=== PATIENT | male | born 1970 | race Caucasian/White ===

== ENCOUNTER 2017-09-24 13:03 | Day surgery (SDC) | payer BC ==
[2017-09-24] VITALS (16 sets, daily range): BP systolic 115–134; BP diastolic 63–79; PULSE 64–68; RESP 7–22; Ht 172.7 cm; Wt 85.4 kg
[~2017-09-24] VITALS: Ht 172.7 cm; Wt 85.4 kg
--- NOTE | 2017-09-24 13:29 | HPN ---
Date/Time of Note Date/Time of Note DATE: 09/24/17 TIME: 13:29 Interval H&P Admission Note Pt. seen H&P reviewed: No system changes STEVEN HORTON MD Sep 24, 2017 13:29
[2017-09-24] MEDS ORDERED: CEFAZOLIN 1 GM/50 ML (PMX) 50 ML IVPB SCH (14:00)
[2017-09-24] MEDS ORDERED: OXYMETAZOLINE 0.05% 15 ML NAS SPRAY NASAL ONE (17:23)
[2017-09-24] MEDS ORDERED: LIDOCAINE 2%/EPI 30 ML INJ ONE (17:23)
[2017-09-24] MEDS ORDERED: BACITRACIN/POLYMYXIN 28.35 GM OINT TOP ONE (17:24)
[2017-09-24] MEDS ORDERED: NEOSTIGMINE 3 MG/3 ML SYRINGE ONE (17:39)
[2017-09-24] MEDS ORDERED: GLYCOPYRROLATE 0.4 MG INJ ONE (17:39)
[2017-09-24] MEDS ORDERED: PROPOFOL 20 ML ONE (17:39)
[2017-09-24] MEDS ORDERED: ROCURONIUM 50 MG INJ ONE (17:39)
[2017-09-24] MEDS ORDERED: METOCLOPRAMIDE 10 MG INJ ONE (17:39)
[2017-09-24] MEDS ORDERED: MIDAZOLAM 1 MG/ML 2 ML INJ ONE (17:39)
[2017-09-24] MEDS ORDERED: CEFAZOLIN 1 GM INJ ONE (17:40)
[2017-09-24] MEDS ORDERED: METOCLOPRAMIDE 10 MG INJ IV PRN (18:00)
[2017-09-24] MEDS ORDERED: HYDROmorphONE (0.2 MG/ML) 10ML SYG IV PRN ×3 (18:00)
[2017-09-24] MEDS ORDERED: ONDANSETRON 4 MG INJ IV PRN (18:00)
[2017-09-24] MEDS ORDERED: ACETAMINOPHEN 1000MG/100ML IV 100 ML ONE (18:00)
[2017-09-24] MEDS ORDERED: OXYCODONE/ACETAMINOPHEN (5/325) TAB PO PRN ×2 (18:00)
[2017-09-24] MEDS ORDERED: PHENYLephrine 0.25% 15 ML NAS SPRAY ONE (18:11)
[2017-09-24] MEDS ORDERED: DEXAMETHASONE 4 MG/ML 1 ML INJ ONE ×2 (18:15→18:57)
[2017-09-24] MEDS ORDERED: FENTAnyl 50 MCG/ML VIAL ONE (18:15)
[2017-09-24] MEDS ORDERED: DIPHENHYDRAMINE 50 MG INJ ONE (19:33)
--- NOTE | 2017-09-25 07:57 | SIPON ---
Date/Time of Note Date/Time of Note DATE: 09/24/17 TIME: 19:03 Operative Report Preoperative Diagnosis Chronic sinusitis with nasal polyposis Postoperative Diagnosis same Operation/Procedure Performed 1. Nasal/sinus endoscopy with frontal sinusotomy and removal of tissue 2. Nasal/sinus endoscopy with total ethmoidectomy 3. Nasal/sinus endoscopy with maxillary antrostomy and removal of tissue 4. Nasal/sinus endoscopy with sphenoidotomy 5. Inferior turbinate reduction Surgeon see signature line management assistant None Anesthesia: general Estimated blood loss: 10 - 50 ml's Transfusion Required none Specimen Left and right sinus Grafts/Implants none Complications none STEVEN HORTON MD Sep 25, 2017 07:57
--- NOTE | 2017-09-25 07:57 | SIPON ---
Date/Time of Note Date/Time of Note DATE: 09/24/17 TIME: 19:03 Operative Report Preoperative Diagnosis Chronic sinusitis with nasal polyposis Postoperative Diagnosis same Operation/Procedure Performed 1. Nasal/sinus endoscopy with frontal sinusotomy and removal of tissue 2. Nasal/sinus endoscopy with total ethmoidectomy 3. Nasal/sinus endoscopy with maxillary antrostomy and removal of tissue 4. Nasal/sinus endoscopy with sphenoidotomy 5. Inferior turbinate reduction Surgeon see signature line patient clerical assistant None Anesthesia: general Estimated blood loss: 10 - 50 ml's Transfusion Required none Specimen Left and right sinus Grafts/Implants none Complications none STEVEN HORTON MD Sep 25, 2017 07:57
--- NOTE | 2017-09-25 07:57 | SIPON ---
Date/Time of Note Date/Time of Note DATE: 09/24/17 TIME: 19:03 Operative Report Preoperative Diagnosis Chronic sinusitis with nasal polyposis Postoperative Diagnosis same Operation/Procedure Performed 1. Nasal/sinus endoscopy with frontal sinusotomy and removal of tissue 2. Nasal/sinus endoscopy with total ethmoidectomy 3. Nasal/sinus endoscopy with maxillary antrostomy and removal of tissue 4. Nasal/sinus endoscopy with sphenoidotomy 5. Inferior turbinate reduction Surgeon see signature line licensed occupational therapy assistant None Anesthesia: general Estimated blood loss: 10 - 50 ml's Transfusion Required none Specimen Left and right sinus Grafts/Implants none Complications none STEVEN HORTON MD Sep 25, 2017 07:57
--- NOTE | 2017-09-25 08:05 | OPR ---
Date/Time of Note Date/Time of Note DATE: 09/24/17 TIME: 19:03 Operative Report Procedure Date: Sep 24, 2017 Preoperative Diagnosis 1. Chronic sinusitis with nasal polyposis 2. Turbinate hypertrophy Postoperative Diagnosis Same Operation/Procedure Performed 1. Nasal/sinus endoscopy with frontal sinusotomy and removal of tissue 2. Nasal/sinus endoscopy with total ethmoidectomy 3. Nasal/sinus endoscopy with maxillary antrostomy and removal of tissue 4. Nasal/sinus endoscopy with sphenoidotomy 5. Inferior turbinate reduction Surgeon see signature line Executive Receptionist None Anesthesia Type: general Estimated Blood Loss: 0 - 10 ml's Transfusion none Specimen Left and right sinus Grafts/Implants none Complications none Pt Condition Post Procedure: stable Disposition: PACU Indications The patient has a long-standing history of chronic sinusitis with nasal polyposis and nasal obstruction. He has been refractory to medical management. The risks, benefits, alternatives to surgery were discussed the patient. He understood these and signed consent. The risks included but were not limited to bleeding, infection, scar, recurrence of polyps, orbital injury, CSF leak, need for revision surgery, need for continued allergy medicines, and pain. Procedure Description After informed consent was obtained the patient was brought back to operating room. He was intubated by anesthesia and sedated. The face was prepped and draped in usual sterile fashion. Due to the abundant polypoid tissue, the navigation system was used. The [employer] infusion system was calibrated to the patient's face. Eddie-Synephrine soaked cottonoids were inserted into the nasal cavities and left for several minutes and removed. 1% lidocaine with epinephrine was injected into the nasal polyps lateral nasal zuñiga middle turbinates and inferior turbinates. Beginning first on the left side, polyps were found to be filling the nasal cavity. Polyps were removed with Blakesley forceps. Next, the microdebrider was used to debulk the polypoid tissue into the middle turbinate was identified. Once the middle turbinate was identified it was medialized with a Alexi elevator. Polyps removed from the middle meatus. The uncinate process was identified and taken down with the microdebrider. The maxillary ostium was identified and widened with the microdebrider. Polyps removed from the maxillary sinus. Next, the ethmoid bulla was entered at its most inferior medial aspect. A total ethmoidectomy was then performed. I proceeded to move posteriorly along the skull base until identified most posterior ethmoid air cell. I then moved anteriorly along the skull base being very aware of where the skull base and lamina papyrcea were. The ethmoid air cells were filled with polyps. Using a combination of 45 Blakesley forceps and the microdebrider , I opened up all the ethmoid air cells. As I approach the frontal recess I removed numerous polyps. The agger nasi cell was taken down. The frontal recess was then visualized and widened with the microdebrider. Finally, I identified the sphenoid ostium at its normal location and widened it with the microdebrider. Polyps were removed from this area. Moving to the right side, polyps were found to be filling the nasal cavity. Polyps were removed with Blakesley forceps. Next, the microdebrider was used to debulk the polypoid tissue into the middle turbinate was identified. Once the middle turbinate was identified it was medialized with a Parmer elevator. Polyps removed from the middle meatus. The uncinate process was identified and taken down with the microdebrider. The maxillary ostium was identified and widened with the microdebrider. Polyps removed from the maxillary sinus. Next , the ethmoid bulla was entered at its most inferior medial aspect. A total ethmoidectomy was then performed. I proceeded to move posteriorly along the skull base until identified most posterior ethmoid air cell. I then moved anteriorly along the skull base being very aware of where the skull base and lamina papyrcea were. The ethmoid air cells were filled with polyps. Using a combination of 45 Blakesley forceps and the microdebrider, I opened up all the ethmoid air cells. As I approach the frontal recess I removed numerous polyps. The agger nasi cell was taken down. The frontal recess was then visualized and widened with the microdebrider. Finally, I identified the sphenoid ostium at its normal location and widened it with the microdebrider. Polyps were removed from this area. A stab incision was made under the heads of both inferior turbinates. Mucoperiosteal flaps were elevated. Inferior turbinate bone was removed with Osman forceps. The sinus cavities were then irrigated profusely with saline. Nasapore was placed in both ethmoid cavities. The patient was then extubated by anesthesia and brought to the recovery room in stable condition. STEVEN HORTON MD Sep 25, 2017 08:04
== END 2017-09-24 20:46 | disposition home or self-care (01) ==
LOC: SDS 13:03
PROVIDERS: ATTEND Otolaryngology
DX: J32.9 Chronic sinusitis, unspecified (principal); J34.3 Hypertrophy of nasal turbinates; J33.9 Nasal polyp, unspecified
CPT/HCPCS: 30140; 31090; 80048; 85025; 85610; 85730; 88304; J0131; J0690; J1100; J2250; J2710; J2765; Z7512; Z7610; J1200; J3010